=== PATIENT | male | born 1960 | race American Indian/Alaskan Native ===

== ENCOUNTER 2019-04-21 09:07 | Emergency (ER) | payer MEDICAID ==
[2019-04-21 09:28] VITALS: BP 102/61; PULSE 76
--- NOTE | 2019-04-21 09:36 | EDM.PDOC ---
<Robert Sheth - Last Filed: 04/21/19 11:30> ED HPI GENERAL MEDICAL PROBLEM - General Chief Complaint: Respiratory Problem Stated Complaint: THROAT COUGH Time Seen by Provider: 04/21/19 09:31 Source of Information: Reports: Patient, RN, RN Notes Reviewed History Limitations: Reports: No Limitations - History of Present Illness INITIAL COMMENTS - FREE TEXT/NARRATIVE: patient presents to the ER with complaints of productive cough, sore throat and headache. He is accompanied by his with the same chief complaints. Symptoms began about 3 days ago. His grandchildren came over to his house last week and they were sick at the time. He does not know if they had influenza but they were all ill. He is coughing up large amounts of thick yellow sputum. Has been taking tylenol and motrin at home. He has not had any relief of his sore throat with motrin or tylenol. Onset Date: 04/18/19 Duration: Day(s): (3 days) Location: Reports: Head, Face, Neck, Generalized Quality: Reports: Ache Severity: Mild Improves with: Reports: None Worsens with: Reports: None Associated Symptoms: Reports: cough w sputum, Fever/Chills, Headaches, Loss of Appetite, Nausea/Vomiting. 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 [No Known Home Meds] 05/21/14 [History] Past Medical History - Past Health History Medical/Surgical History: Denies Medical/Surgical History Social & Family History - Family History Family Medical History: Noncontributory - Tobacco Use Smoking Status *Q: Never Smoker - Caffeine Use Caffeine Use: Reports: Coffee - Recreational Drug Use Recreational Drug Use: No ED ROS GENERAL - Review of Systems Review Of Systems: Comprehensive ROS is negative, except as noted in HPI. ED EXAM, GENERAL - Physical Exam Exam: See Below Exam Limited By: No Limitations General Appearance: Alert, WD/WN, No Apparent Distress Ears: Normal External Exam, Normal Canal, Hearing Grossly Normal, Normal TMs Ear Exam: Bilateral Ear: Auricle Normal, Canal Normal, TM normal Nose: Normal Inspection, Normal Mucosa, No Blood Throat/Mouth: Normal Inspection, Normal Lips, Normal Teeth, Normal Gums, Normal Oropharynx, Normal Voice, No Airway Compromise Head: Atraumatic, Normocephalic Neck: Normal Inspection, Supple, Non-Tender, Full Range of Motion Respiratory/Chest: No Respiratory Distress, Lungs Clear, Normal Breath Sounds, No Accessory Muscle Use, Chest Non-Tender Cardiovascular: Normal Peripheral Pulses, Regular Rate, Rhythm, No Edema, No Gallop, No JVD, No Murmur, No Rub GI/Abdominal: Normal Bowel Sounds, Soft, Non-Tender, No Organomegaly, No Distention, No Abnormal Bruit, No Mass Extremities: Normal Inspection, Normal Range of Motion, Non-Tender, Normal Capillary Refill, No Pedal Edema Neurological: Alert, Oriented, CN II-XII Intact, Normal Cognition, Normal Gait, Normal Reflexes, No Motor/Sensory Deficits Psychiatric: Normal Affect, Normal Mood Skin Exam: Warm, Intact, Normal Color, Diaphoretic Course - Vital Signs Last Recorded V/S: Last Vital Signs Temp 37.3 C 04/21/19 09:44 Pulse 76 04/21/19 09:19 Resp 18 04/21/19 09:19 BP 102/61 04/21/19 09:19 Pulse Ox 99 04/21/19 09:19 - Orders/Labs/Meds Orders: Active Orders 24 hr Category Date Time Status CULTURE STREP A CONFIRMATION [] Stat Lab 04/21/19 09:15 Results STREP SCRN A RAPID W CULT CONF [] Stat Lab 04/21/19 09:15 Results Labs: Laboratory Tests 04/21/19 04/21/19 Range/Units 10:00 10:00 WBC 14.9 H (5.0-10.0) 10^3/uL RBC 3.72 L (4.6-6.2) 10^6/uL Hgb 10.8 L (14.0-18.0) g/dL Hct 32.2 L (40.0-54.0) % MCV 86.6 (80-100) fL MCH 29.0 (27.0-34.0) pg MCHC 33.5 (33.0-35.0) g/dL Plt Count 215 (150-450) 10^3/uL Neut % (Auto) 88.4 H (42.2-75.2) % Lymph % (Auto) 2.9 L (20.5-50.1) % Bullitt % (Auto) 8.6 H (2-8) % Eos % (Auto) 0.0 L (1.0-3.0) % Baso % (Auto) 0.1 (0.0-1.0) % Add Manual Diff Yes Neutrophils % (Manual) 74 (42-75) % Band Neutrophils % 14 % Lymphocytes % (Manual) 3 L (20-50) % Monocytes % (Manual) 9 H (2-8) % Sodium 134 L (135-145) mmol/L Potassium 3.3 L (3.6-5.0) mmol/L Chloride 106 (101-111) mmol/L Carbon Dioxide 19.0 L (21.0-31.0) mmol/L Anion Gap 12.3 BUN 26 H (7-18) mg/dL Creatinine 1.3 (0.6-1.3) mg/dL Est Cr Clr Drug Dosing 63.45 mL/min Estimated GFR (MDRD) 57 BUN/Creatinine Ratio 20.00 Glucose 125 H (74-105) mg/dL Calcium 8.3 L (8.4-10.2) mg/dl Total Bilirubin 0.6 (0.2-1.0) mg/dL AST 15 (10-42) IU/L ALT 12 (10-60) IU/L Alkaline Phosphatase 55 (42-121) IU/L Total Protein 7.5 (6.7-8.2) g/dl Albumin 3.9 (3.2-5.5) g/dl Globulin 3.6 Albumin/Globulin Ratio 1.08 Strep screen: Negative Influenza A&B: Negative Meds: Medications Discontinued Medications Generic Name Dose Route Start Last Admin Trade Name Freq PRN Reason Stop Dose Admin Ceftriaxone Sodium 1 gm/ 0 gm 04/21/19 11:32 Lidocaine HCl 2.1 ml IM 04/21/19 11:33 ONETIME ONE Departure - Departure Time of Disposition: 11:30 Disposition: Home, Self-Care 01 Condition: Good Clinical Impression: Community acquired pneumonia Qualifiers: Laterality: unspecified laterality Qualified Code(s): J18.9 - Pneumonia, unspecified organism - Discharge Information *PRESCRIPTION DRUG MONITORING PROGRAM REVIEWED*: Not Applicable *COPY OF PRESCRIPTION DRUG MONITORING REPORT IN PATIENT JENNIFER: Not Applicable Instructions: Community-Acquired Pneumonia, Adult, [id number] Forms: ED Department Discharge Additional Instructions: Rx: Azithromycin 500 mg Take the antibiotic Azithromycin 3 times daily for 5 days. Take the full course of antibiotics until gone. Use tylenol and ibuprofen for pain and fever control. Rest and stay hydrated with drinking plenty of fluids. If symptoms worsen or do not resolve follow-up in clinic with primary care provider for further evaluation. Sepsis Event Note - Evaluation Sepsis Screening Result: No Definite Risk - Focused Exam Vital Signs: Vital Signs Temp Temp Pulse Resp BP Pulse Ox 04/21/19 09:44 37.3 C 04/21/19 09:19 36.7 C 76 18 102/61 99 Date Exam was Performed: 04/21/19 Time Exam was Performed: 11:30 - My Orders Last 24 Hours: My Active Orders 04/21/19 09:15 CULTURE STREP A CONFIRMATION [RM] Stat STREP SCRN A RAPID W CULT CONF [RM] Stat - Assessment/Plan Last 24 Hours: My Active Orders 04/21/19 09:15 CULTURE STREP A CONFIRMATION [RM] Stat STREP SCRN A RAPID W CULT CONF [RM] Stat <Herberth Gomez - Last Filed: 04/21/19 11:39> Course - Re-Assessments/Exams Free Text/Narrative Re-Assessment/Exam: 04/21/19 11:38 I have examined the patient. I have discussed findings and treatment plan with the PA student. I agree with the assessment and plan in the following students note. Sepsis Event Note - Focused Exam Date Exam was Performed: 04/21/19 Time Exam was Performed: 11:38
[2019-04-21 10:32] LABS: ANION GAP 12.3
[2019-04-21] MEDS ORDERED: cefTRIAXone 1 GM, Lidocaine 1% 2.1 ML IM ONE ×2 (11:32)
== END 2019-04-21 11:52 | disposition home or self-care (01) ==
LOC: DL.ED 09:07
DX: J18.9 Pneumonia, unspecified organism (principal)
CPT/HCPCS: 36415; 71046; 80053; 85025; 87081; 87430; 87804; 96372; 99284; J0696; J2001